=== PATIENT | male | born 2005 | race Caucasian/White ===

== ENCOUNTER 2025-01-22 15:38 | Emergency (ER) | payer OTHER, SELFPAY ==
[2025-01-22 15:42] VITALS: BP 141/65; PULSE 65; RESP 18; TEMP 36.4; O2SAT 100
--- NOTE | 2025-01-22 15:48 | ECG_ITS ---
Test Date: 2025-01-22 15:56:34 Measurements Intervals [place] Rate: 67 P: 24 MA: 147 QRS: 67 QRSD: 96 T: 32 QT: 409 QTc: 432 Interpretive Statements SINUS RHYTHM No previous ECG available for comparison Electronically Signed On 01-23-2025 14:13:51 CDT by Stevie Palma M.D.
--- NOTE | 2025-01-22 16:08 | ED.GENADULT ---
HPI - General Adult General Chief complaint: Unspecified Stated complaint: heat exhaustion Time Seen by Provider: 01/22/25 15:59 Source: patient and EMS Mode of arrival: EMS History of Present Illness HPI narrative: 19 y/o WM in the ED via EMS from transport. 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 Pt states the bus was not air conditioned. Pt states hydrating on the bus, but became dizzy and felt his extremities tingling, as well as chest tightness. Pt endorses nausea, but denies vomiting. Pt endorsing not sweating anymore. Attempted to drink Gatorade, but became too nauseous. Pt switched to air conditioned bus, but symptoms persisted and EMS contacted. Pt given 1L LR per EMS. Pt states his symptoms feel better at this time. Pt denies MONTEIRO, SOB, vision complaints, abd pain, neck pain, syncope Related Data Allergies Allergy/AdvReac Type Severity Reaction Status Date / Time No Known Allergies Allergy Verified 01/22/25 15:59 Review of Systems Review of Systems: CONSTITUTIONAL: Denies fever, chills, or sweats. EYES: Denies visual changes, redness, or discharge. ENT: Denies rhinorrhea, congestion, sore throat, or otalgia. CARDIOVASCULAR: Endorses slight chest pressure. Denies chest pain, palpitations, or edema. RESPIRATORY: Denies cough or dyspnea. GASTROINTESTINAL: Endorses slight intermittent nausea. Denies abdominal pain, vomiting, or diarrhea. GENITOURINARY: Denies dysuria or hematuria. SKIN: Denies rash or itching. MUSCULOSKELETAL: Denies back pain, joint pain, or myalgia. NEUROLOGIC: Endorses tingling of extremities. Denies headache, numbness, or weakness. PSYCHIATRIC: Denies anxiety or depression. Exam Narrative: GENERAL: Well-appearing, well-nourished, and in no acute distress. HEAD: Normocephalic, atraumatic. EYES: PERRLA and EOMI. ENT: Nares clear, no rhinorrhea or epistaxis. Mucous membranes moist. NECK: Supple. CHEST: Clear to auscultation. No respiratory distress. HEART: Regular rate and rhythm. No murmur heard. Normal peripheral pulses. ABDOMEN: Soft, nontender, nondistended, normal active bowel sounds. EXTREMITIES: Normal range of motion. No edema. SKIN: Warm, dry, no rash. NEURO: No focal deficits. Alert and oriented x3. PSYCH: Normal mood and affect. Course Vital Signs Vital signs: Vital Signs Temperature 36.4 C L 01/22/25 15:42 Pulse Rate 65 01/22/25 15:42 Respiratory Rate 18 01/22/25 15:42 Blood Pressure 141/65 H 01/22/25 15:42 Pulse Oximetry 100 01/22/25 15:42 Oxygen Delivery Room Air 01/22/25 15:42 Temperature 36.4 C L 01/22/25 15:42 Pulse Rate 65 01/22/25 15:42 Respiratory Rate 18 01/22/25 15:42 Blood Pressure 141/65 H 01/22/25 15:42 Pulse Oximetry 100 01/22/25 15:42 Oxygen Delivery Room Air 01/22/25 15:42 Medical Decision Making MDM Narrative Medical decision making narrative: HPI: 19 y/o WM in the ED via EMS from transport. 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 Pt states the bus was not air conditioned. Pt states hydrating on the bus, but became dizzy and felt his extremities tingling, as well as chest tightness. Pt endorses nausea, but denies vomiting. Pt endorsing not sweating anymore. Attempted to drink Gatorade, but became too nauseous. Pt switched to air conditioned bus, but symptoms persisted and EMS contacted. Pt given 1L LR per EMS. Pt states his symptoms feel better at this time. Pt denies MONTEIRO, SOB, vision complaints, abd pain, neck pain, syncope My Plan Labs Ordered: None Imaging Ordered: EKG completed, see below Medications Ordered: None Results: N/A Diagnosis: Heat exhaustion Risks: Consults: None Patient to be given p.o. fluids and assess for nausea. Patient has otherwise normal exam, EKG normal sinus on evaluation. Patient tolerating p.o. fluids, drink 3 glasses in the emergency department waiting room. Patient denies any chest pain shortness of breath nausea or vomiting since arrival. Patient source is feeling much better with IV fluids per EMS and p.o. fluids per emergency room. Differential Diagnosis Differential Diagnosis: Heat cramps, heat exhaustion, heat stroke, hyperthermia Medical Records Medical records reviewed: Yes I reviewed the external patient's medical records. Vital Signs Vital Signs: Vital Signs Temperature 36.4 C L 01/22/25 15:42 Pulse Rate 65 01/22/25 15:42 Respiratory Rate 18 01/22/25 15:42 Blood Pressure 141/65 H 01/22/25 15:42 Pulse Oximetry 100 01/22/25 15:42 Oxygen Delivery Room Air 01/22/25 15:42 Temperature 36.4 C L 01/22/25 15:42 Pulse Rate 65 01/22/25 15:42 Respiratory Rate 18 01/22/25 15:42 Blood Pressure 141/65 H 01/22/25 15:42 Pulse Oximetry 100 01/22/25 15:42 Oxygen Delivery Room Air 01/22/25 15:42 ECG Data EKG #1: Attestation: I personally reviewed and interpreted this ECG as follows: ECG completion date: 01/22/25 ECG completion time: 15:56 Prior ECG tracings: available for review EKG Interpretation: normal rate, sinus rhythm, no ectopy, no ST changes, normal QRS and normal QT Discharge Plan Discharge Clinical Impression: Heat exhaustion Qualifiers: Encounter type: initial encounter Qualified Code(s): T67.5XXA - Heat exhaustion, unspecified, initial encounter Patient Disposition: Home Condition: Stable Instructions: Antibiotic Form, Heat Exhaustion (ED) Additional Instructions: Drink plenty of fluids and Pedialyte/Gatorade. I suggest resting for today. No drinking alcohol or use of caffeinated products today. Please return to the ER with any worsening symptoms. ?Follow-up with primary care provider as soon as possible. ?Take all medications as prescribed, including regularly scheduled medications. [phone] [facility], ask for Medical records Patient Language: Eritrean Follow-up/Referrals: PHYSICIAN,NUCLEAR MEDICINE SPECIALIST [Primary Care Provider] -
--- NOTE | 2025-01-22 16:45 | PC.NURSE ---
Tolerating PO fluids well while in lobby.
--- OUTSIDE RECORDS SUMMARY | 2025-01-22 16:50 | XMS_ITS | Clinical Summary ---
Author Organization [facility] [address] [facility] Address [address] [place] [address] Phone Care Team Providers Care Electronic Development Technician Name Role Phone Soha Sutton DO Primary Care Provider Allergies No known active allergies Medications No known medications Active Problems No known active problems Family History Medical History Relation Name Comments Healthy Father Rectal Cancer Mother Prostate Cancer Paternal Grandfather Relation Name Status Comments Father Mother Paternal Grandfather Social History Tobacco Use Types Packs/Day Years Used Date Smoking Tobacco: Never Smokeless Tobacco: Never Tobacco Cessation:Counseling Given: Not Answered Alcohol Use Standard Drinks/Week Comments Not Currently 0 (1 standard drink = 0.6 oz pur e alcohol) Sex and Gender Information Value Date Recorded Sex Assigned at Not on file Legal Sex Male 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 Gender Identity Not on file Sexual Orientation Not on file Last Filed Vital Signs Vital Sign Reading Time Taken Comments Blood Pressure 114/71 07/29/2023 2:28 PM BROADCAST OPERATIONS DIRECTOR Pulse 77 07/29/2023 2:28 PM BROADCAST OPERATIONS DIRECTOR Temperature 37.2 C (98.9 F) 07/29/2023 2:28 PM BROADCAST OPERATIONS DIRECTOR Respiratory Rate - - Oxygen Saturation 97% 07/29/2023 2:28 PM BROADCAST OPERATIONS DIRECTOR Inhaled Oxygen Concentration - - Weight 111.4 kg (245 lb 11.2 oz) 07/29/2023 2:28 PM BROADCAST OPERATIONS DIRECTOR Height 185.4 cm (6' 1) 07/29/2023 2:28 PM BROADCAST OPERATIONS DIRECTOR Body Mass Index 32.42 07/29/2023 2:28 PM BROADCAST OPERATIONS DIRECTOR Plan of Treatment Health Maintenance Due Date Last Done Comments HEPATITIS B VACCINES (4 of 4 - 4-dose series) 2003 2003, 2003, 2003 DTAP/TDAP/TD VACCINES (6 - Tdap) 2014 03/25/2007, 01/15/2005, 2003, Additional history exists HPV VACCINES (1 - Male 3-dos e series) 2018 Preventative Visit- Commercial 06/30/2024 INFLUENZA VACCINE (#1) 2025 Insurance [employer] [facility] [id number] [facility] Address: [address] [place] [address] [employer] Care Teams Electronic Development Technician Relationship Specialty Start Date End Date Herman DO Soha [address] [place] [phone] PCP - General Family Practice 07/29/23
== END 2025-01-22 16:58 | disposition home or self-care (01) ==
PROVIDERS: Emergency Provider Registered Nurse Emergency
DX: T67.5XXA Heat exhaustion, unspecified, initial encounter (principal); X30.XXXA Exposure to excessive natural heat, initial encounter
CPT/HCPCS: 93005; 99283